=== PATIENT | female | born 2000 | race Hispanic/Latino ===

== ENCOUNTER 2023-03-25 21:55 | Day surgery (SDC) | payer OTHER ==
[2023-03-25 22:28] VITALS: BMI 34.0
[2023-03-25] MEDS ORDERED: hydrALAZINE 20 MG/ML VIAL SLOW IVP PRN (23:09)
== END 2023-03-26 00:20 | disposition home or self-care (01) ==
LOC: CSHLD/OP 21:55
PROVIDERS: ATTEND Obstetrics & Gynecology
DX: O99.891 Other specified diseases and conditions complicating pregnancy (principal); R10.9 Unspecified abdominal pain; Z3A.34 34 weeks gestation of pregnancy
CPT/HCPCS: 76819; 99282

== ENCOUNTER 2023-04-27 05:30 | Inpatient (IN) | payer OTHER ==
[~2023-04-27 05:30] MED LIST: Acetaminophen 500 MG TAB PO PRN; Butorphanol Tartrate 1 MG/ML VIAL SLOW IVP PRN; Carboprost 250 MCG/ML AMP IM PRN; Diphenoxylate HCl/Atropine Tablet PO PRN; HYDROcodone/Acetaminophen 5/325 mg Tablet PO PRN; Ibuprofen 800 MG TAB PO PRN; Lactated Ringer's 1,000 ML IV SCH; Lidocaine 1% (PF) 30 ML VIAL SC PRN; Methylergonovine 0.2 MG/ML VIAL IM PRN; Misoprostol 200 MCG TAB PR PRN; NS w/ Oxytocin 30 units 500 ML IV SCH; Ondansetron PF 4 MG/2 ML Vial IVP PRN; Penicillin G Potassium 5 MILL.UNITS in Sodium Chloride 0.9% 100 ML IVPB SCH; Promethazine HCl 25 MG/ML VIAL IM PRN; Tranexamic Acid 1,000 MG/10 ML VIAL IVP PRN; fentaNYL 50 mcg/mL 1 mL Vial SLOW IVP PRN; hydrALAZINE 20 MG/ML VIAL SLOW IVP PRN
[2023-04-27 06:42] VITALS: BMI 33.8
[2023-04-27] MEDS ORDERED: Penicillin G Potassium 5 MILL.UNITS in Sodium Chloride 0.9% 100 ML IVPB SCH (07:00)
[2023-04-27 07:58] LABS: Hematocrit 33.4 % (34.9-44.5); Hemoglobin 11.2 g/dL (12.0-15.5); Mean Corpuscular HGB CONC 33.5 g/dL (32.0-36.0); Mean Corpuscular Hemoglobin 28.5 pg (27.0-33.0); Mean Platelet Volume 11.8 fl (7.4-10.4); Platelet Count 251 10x3/uL (150-450); RBC Distribution Width 13.1 % (11.5-14.5); Red Blood Cell (RBC) Count 3.93 10x6/uL (3.90-5.03); White Blood Cell (WBC) Count 12.5 10x3/uL (3.5-10.5)
[2023-04-27 08:40] LABS: HBSAg Index 0.19 S/CO (0-0.99); Hep B Surf Ag - L&D Non-Reactive S/CO (NonReactive)
[2023-04-27 08:41] LABS: Syphilis Antibody Nonreactive (Nonreactive); Syphilis Antibody Index 0.03 S/CO (<1.00 Non-Reactive)
[2023-04-27] MEDS ORDERED: fentaNYL/Ropivacaine Epidural 100 ML ONE (09:38)
[2023-04-27] MEDS: Penicillin G 2.5 MILL.units 2.5 MILL.UNITS in Premix Bag 1 BAG IVPB SCH ×3 (10:59→18:45)
[2023-04-27] MEDS ORDERED: Promethazine HCl 25 MG/ML VIAL IM PRN (13:37)
[2023-04-27] MEDS ORDERED: Ondansetron PF 4 MG/2 ML Vial IVP PRN (13:37)
[2023-04-27] MEDS ORDERED: Lactated Ringer's 500 ML IV PRN (13:37)
[2023-04-27] MEDS ORDERED: Acetaminophen 325 MG TAB PO PRN (13:37)
[2023-04-27] MEDS ORDERED: Naloxone HCl 0.4 mg/ml Vial IVP PRN ×2 (13:37)
[2023-04-27] MEDS ORDERED: Moisturizing Cream (Eucerin) 113 GM JAR TOP PRN (13:37)
[2023-04-27] MEDS ORDERED: ePHEDrine Sulfate 50 MG/10 ML VIAL SLOW IVP PRN (13:37)
[2023-04-27] MEDS ORDERED: diphenhydrAMINE 50 MG/ML VIAL IVP PRN (13:37)
[2023-04-27] MEDS ORDERED: fentaNYL 2 mcg/Ropivacaine 0.2% Epidural 100 ML CADD EPIDURAL SCH (13:45)
[2023-04-27] MEDS ORDERED: Communication Order-Pharmacy FS SCH (13:45)
[2023-04-28] MEDS ORDERED: diphenhydrAMINE 25 MG CAP PO PRN (03:06)
[2023-04-28] MEDS ORDERED: Measles/Mumps/Rubella 10 MCG/0.5 ML VIAL SC ONE (03:06)
[2023-04-28] MEDS ORDERED: Boostrix 0.5 ML (Tdap) VIAL (>/=7 yrs of age) IM ONE (03:06)
[2023-04-28] MEDS ORDERED: HYDROcodone/Acetaminophen 5/325 mg Tablet PO PRN (03:06)
[2023-04-28] MEDS ORDERED: hydrALAZINE 20 MG/ML VIAL SLOW IVP PRN (03:06)
[2023-04-28] MEDS ORDERED: Varicella virus, LIVE 0.5 ML VIAL SC ONE (03:06)
[2023-04-28] MEDS ORDERED: Bisacodyl 10 MG SUPP PR PRN (03:06)
[2023-04-28] MEDS ORDERED: Lanolin Ointment 7 GM TUBE TOP PRN (03:06)
[2023-04-28] MEDS ORDERED: Methylergonovine 0.2 MG/ML VIAL IM PRN (03:06)
[2023-04-28] MEDS ORDERED: Zolpidem Tartrate 5 MG TAB PO PRN (03:06)
[2023-04-28] MEDS ORDERED: Preparation H Ointment 28 GM TUBE PR PRN (03:06)
[2023-04-28] MEDS ORDERED: Milk Of Magnesia 30 ML UDCUP PO PRN (03:06)
[2023-04-28] MEDS ORDERED: Benzocaine-Menthol 82.5 ML CAN TOP PRN (03:06)
[2023-04-28] MEDS ORDERED: Misoprostol 200 MCG TAB VAG PRN (03:06)
[2023-04-28] MEDS ORDERED: Promethazine HCl 25 MG/ML VIAL IM PRN (03:06)
[2023-04-28] MEDS ORDERED: Ondansetron PF 4 MG/2 ML Vial IVP PRN (03:06)
[2023-04-28] MEDS ORDERED: NS w/ Oxytocin 30 units 500 ML IV SCH (03:15)
[2023-04-28] MEDS: Penicillin G 2.5 MILL.units 2.5 MILL.UNITS in Premix Bag 1 BAG IVPB SCH ×2 (03:53→04:35)
[2023-04-28 05:29] LABS: Hematocrit 31.9 % (34.9-44.5); Hemoglobin 10.9 g/dL (12.0-15.5); Mean Corpuscular HGB CONC 34.2 g/dL (32.0-36.0); Mean Corpuscular Hemoglobin 29.5 pg (27.0-33.0); Mean Corpuscular Volume 86.4 fl (81.6-98.3); Mean Platelet Volume 12.1 fl (7.4-10.4); Platelet Count 218 10x3/uL (150-450); Red Blood Cell (RBC) Count 3.69 10x6/uL (3.90-5.03); White Blood Cell (WBC) Count 21.6 10x3/uL (3.5-10.5)
[2023-04-28] MEDS: Ferrous Sulfate 325 MG TAB PO SCH ×2 (08:10→17:52)
[2023-04-28] MEDS: Ibuprofen 800 MG TAB PO SCH ×2 (08:25→17:50)
[2023-04-28] MEDS: Prenatal Vitamin 1 TAB PO SCH (08:26)
[2023-04-28] MEDS: Docusate 100 MG CAP PO SCH ×2 (11:50→21:27)
[2023-04-28 23:11] VITALS: TEMP 98.1
[2023-04-29] MEDS: Ibuprofen 800 MG TAB PO SCH (06:14)
[2023-04-29 07:39] VITALS: BP 119/62
[2023-04-29] MEDS: HYDROcodone/Acetaminophen 5/325 mg Tablet PO PRN ×3 (07:40→17:29)
[2023-04-29] MEDS: Prenatal Vitamin 1 TAB PO SCH (07:40)
[2023-04-29] MEDS: Ferrous Sulfate 325 MG TAB PO SCH (07:41)
[2023-04-29] MEDS: Docusate 100 MG CAP PO SCH (07:42)
[2023-04-29] MEDS ORDERED: Ibuprofen 800 MG TAB PO SCH (14:00)
== END 2023-04-29 18:15 | disposition home or self-care (01) | DRG 807 ==
LOC: CSHLD 06:01 → CSHPP 04-28 02:55
PROVIDERS: ADMIT Obstetrics & Gynecology; ATTEND Obstetrics & Gynecology
PROC: 10E0XZZ Delivery of Products of Conception, External Approach (ICD-10-PCS; principal; 2023-04-27)
PROC: 0HQ9XZZ Repair Perineum Skin, External Approach (ICD-10-PCS; 2023-04-27)
DX: O99.824 Streptococcus B carrier state complicating childbirth (principal); Z37.0 Single live birth; O70.0 First degree perineal laceration during delivery; Z3A.39 39 weeks gestation of pregnancy
CPT/HCPCS: 36415; 51702; 85027; 86780; 86850; 86900; 86901; 87340; J0360; J2210; J2540; J2590; J3490